=== PATIENT | female | born 1945 | race Caucasian/White ===

== ENCOUNTER 2021-10-23 14:58 | Emergency (ER) | payer MEDICARE, OTHER ==
[2021-10-23] MEDS ORDERED: AMOX TR-K CLV1 EAC4 PO (17:18)
== END 2021-10-23 17:19 | disposition home or self-care (01) ==
LOC: FER 14:58
DX: S81.812A Laceration without foreign body, left lower leg, initial encounter (principal); I10 Essential (primary) hypertension; Z88.1 Allergy status to other antibiotic agents; W54.1XXA Struck by dog, initial encounter; Y92.009 Unspecified place in unspecified non-institutional (private) residence as the place of occurrence of the external cause
CPT/HCPCS: 99283